=== PATIENT | female | born 1975 | race Caucasian/White ===

== ENCOUNTER 2016-08-27 18:42 | Emergency (ER) | payer OTHER ==
[2016-08-27 19:07] VITALS: BP 121/78; PULSE 95; RESP 16; O2SAT 97
--- NOTE | 2016-08-27 19:50 | UCPHY ---
H & P Time Seen by Provider: 08/27/16 18:45 Patient Type: Established HPI/ROS: 41-year-old female presents complaining of right upper back pain primarily infra and chest medial to her scapula that began yesterday. She did to some heavy weight lifting 2 days ago but denies any falls or injury. Review of systems General no fever no chills no weakness HEENT no eye pain no eye discharge. No eye redness, no sore throat Respiratory no cough, no shortness of breath Cardiac no chest pain, no peripheral edema GI no abdominal pain, no diarrhea, no constipation, no nausea, no vomiting no flank pain, no hematuria, no dysuria Musculoskeletal positive myalgias, no joint pain Heme no easy bruising, no easy bleeding Endo no polyuria, no polydipsia Skin no rashes, no pruritus Neuro no syncope, no dizziness, no headaches Psych is no suicidal ideation, no homicidal ideation Past Medical/Surgical History: Carpal tunnel syndrome Migraines Depression Social History: No alcohol no drug use Smoking Status: Never smoked Physical Exam: 41-year-old female alert and oriented in moderate distress secondary to right upper back pain Atraumatic normocephalic Neck supple Lungs clear to auscultation bilaterally Heart regular rate rhythm without murmur rub or gallop Back-positive right in for scapular and medial to scapula muscle spasm and tenderness to palpation, no crepitus no ecchymosis no rash Spine with no step-offs no CVA tenderness Abdomen normoactive bowel sounds soft Extremities no cyanosis clubbing or edema Neuro-gait intact, good customer experience leader bilaterally Constitutional: Initial Vital Signs Heart Rate 95 08/27/16 18:52 Respiratory Rate 16 08/27/16 18:52 Blood Pressure 121/78 H 08/27/16 18:52 O2 Sat (%) 97 08/27/16 18:52 O2 Delivery Mode Room Air Allergies/Adverse Reactions: amoxicillin trihydrate [From Augmentin] Allergy (Verified 11/25/15 09:51) metoclopramide Allergy (Verified 11/25/15 09:51) potassium clavulanate [From Augmentin] Allergy (Verified 11/25/15 09:51) Home Medications: Medication Instructions Recorded Albuterol Hfa Anes Only [Proair 2 mdi IH QID PRN #1 mdi 11/25/15 Hfa Icu (*)] Jody Allergy 11/25/15 Compazine 11/25/15 Cymbalta 11/25/15 Estradiol 11/25/15 Imitrex 11/25/15 Wellbutrin Xl 11/25/15 Fioricet (*) 03/02/16 Diazepam [Valium 5 MG (*)] 5 mg PO TID PRN #15 tab 08/27/16 Medical Decision Making - Diagnostics Imaging: Chest x-ray, rib films negative mild scoliosis ED Course/Re-evaluation: Patient seen and evaluated for right upper back pain that began yesterday Physical exam significant for muscle spasm with swelling just medial to right scapula and tenderness to palpation along that muscle spasm as well as in for scapular, lungs clear to auscultation Chest x-ray rib films negative other than mild scoliosis which is consistent with muscle spasm Impression Right upper back muscle spasm Plan Diazepam/ NSAID Follow-up PCP if not improving - Data Points Medications Given: Discontinued Medications Diazepam (Valium 5 Mg Prepack#4) 1 btl ZAHRA DELEON ONE Stop: 08/27/16 19:52 Last Admin: 08/27/16 20:08 Dose: 1 btl Departure - Departure Disposition: Home, Routine, Self-Care Clinical Impression: Upper back strain, Muscle spasm Condition: Good Instructions: Muscle Spasm (ED) Referrals: [place],. [Primary Care Provider] - As per Instructions [facility] [Provider Group] - As per Instructions Prescriptions: Diazepam [Valium 5 MG (*)] 5 mg PO TID PRN #15 tab PRN Reason: Spasms - PQRS PQRS Measurement: Not applicable
[2016-08-27] MEDS ORDERED: DIAZEPAM 5 MG PREPACK#4 BTL TAKEHOME ONE (19:51)
--- NOTE | 2016-08-27 21:01 | DX ---
Right RIBS 3 views History: Pain in posterior medial right hemithorax after trauma 2 months ago. Findings: No fracture, pneumothorax, hemothorax, or pulmonary contusion. Sigmoid scoliosis of thoraci c spine is mild and unchanged from chest radiograph of November 25, 2015. No paraspinous masses are foun d. Impression: Mild scoliosis. No fracture.
== END 2016-08-27 20:08 | disposition home or self-care (01) ==
LOC: CED 18:42
DX: M62.830 Muscle spasm of back (principal)
CPT/HCPCS: 71101-PO; G0463-PO

== ENCOUNTER 2016-12-13 14:55 | Emergency (ER) | payer OTHER ==
[2016-12-13 15:05] VITALS: BP 116/85; PULSE 98; RESP 16; TEMP 98.6; O2SAT 95
--- NOTE | 2016-12-13 15:20 | EDPHY ---
H & P Stated Complaint: ST,cough and Ear pain x3 days with fever Time Seen by Provider: 12/13/16 15:10 HPI/ROS: CHIEF COMPLAINT: Cough, fever HISTORY OF PRESENT ILLNESS: The patient is a 41 y/o female complaining of a fever, malaise, and dry, "barky" cough for the last few days. She complains of associated ear ache, headache, and mild back pain when coughing. She notes some mild chest "heaviness" associated with her cough. She denies dyspnea, dizziness , rhinorrhea, post-nasal drip, vomiting, diarrhea, abdominal pain, urinary complaints. She has been using Mucinex with acetaminophen and Advil for symptoms, but reports her fever returns as soon as the antipyretics wear off. She reports her flu vaccination is up-to-date. She has a history of anxiety, depression, and intermittent migraines. REVIEW OF SYSTEMS: A 10 point review of systems was performed and is negative with the exception of the elements mentioned in the history of present illness. - Personal History LMP (Females 10-55): Hysterectomy Tetanus Vaccine Date: 2007 - Medical/Surgical History PMH: PMH includes: 1. Depression 2. Anxiety, 3. Migraines 4. Hysterectomy 5. 3 c-sections 6. Facial surgery secondary to trauma 7. 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 Nonsmoker. Occasional alcohol use. PCP: [facility] [employer] - Physical Exam Exam: General Appearance: Alert, no acute distress. Eyes: Pupils equal and round, no conjunctival injection, no discharge. ENT, Mouth: Mucous membranes are moist, mild oropharyngeal erythema and edema without exudate, no uvula or unilateral peritonsillar swelling. No difficulty with swallowing. Tympanic membranes normal bilaterally. Neck: No lymphadenopathy, supple. Respiratory: Lungs are clear to auscultation; no wheezes, rales, or rhonchi. Cardiovascular: Regular rate and rhythm; no murmur, rub, or gallop. Gastrointestinal: Abdomen is soft and non tender, no masses or organomegaly, bowel sounds normal. Skin: Warm and dry, no rashes, normal color. Neurological: Alert and oriented. Moving all four extremities easily and equally. Psychiatric: Normal affect. Constitutional: Initial Vital Signs Temperature (C) 37.0 C 12/13/16 15:01 Heart Rate 98 12/13/16 15:01 Respiratory Rate 16 12/13/16 15:01 Blood Pressure 116/85 H 12/13/16 15:01 O2 Sat (%) 95 12/13/16 15:01 O2 Delivery Mode Room Air Allergies/Adverse Reactions: amoxicillin trihydrate [From Augmentin] Allergy (Verified 12/13/16 14:58) metoclopramide Allergy (Verified 12/13/16 14:58) potassium clavulanate [From Augmentin] Allergy (Verified 12/13/16 14:58) Home Medications: Medication Instructions Recorded Jody Allergy 11/25/15 Compazine 11/25/15 Cymbalta 11/25/15 Estradiol 11/25/15 Imitrex 11/25/15 Wellbutrin Xl 11/25/15 Fioricet (*) 03/02/16 Hydrocodone/APAP 5/325 [[place] 1 - 2 tab PO Q4 PRN #14 tab 12/13/16 5/325 (RX)] Medical Decision Making ED Course/Re-evaluation: Plan for strep swab and flu swab. Healthy 41-year-old with signs and symptoms of a respiratory, likely viral illness. She appears well hydrated. She is not febrile in the emergency department. She is not appear toxic. Flu swab and rapid strep are negative. We discussed the likelihood of this being viral. We discussed symptomatic treatment. She is being given a prescription for Vicodin to use for cough. She will continue with antipyretic measures. She understands that she needs to watch her overall Tylenol dose. We discussed the danger signs that should prompt her to be re-evaluated. Differential Diagnosis: I considered a differential diagnosis that includes but is not limited to upper respiratory infection, influenza, bronchitis, pneumonia, and pharyngitis either viral or bacterial. There is no evidence of peritonsillar abscess on exam. I do not suspect epiglottitis or retropharyngeal abscess. Lung sounds are clear and I do not suspect pneumonia in this setting of normal respiratory exam and normal oxygen saturation. - Data Points Laboratory Results: 12/13/16 12/13/16 12/13/16 Unknown 15:30 15:30 Influenza Typ A,B (DFA) NEGATIVE FOR FLU (NEGATIVE) Group A Strep Screen NEGATIVE (NEGATIVE) Group A Strep DNA Pending Departure - Departure Disposition: Home, Routine, Self-Care Clinical Impression: Cough, Acute viral pharyngitis Condition: Good Instructions: Pharyngitis (ED), Acute Cough (ED) Additional Instructions: 1. Continue alternating acetaminophen and ibuprofen as needed for pain and fever for the next 2-3 days or while symptoms are present. Instructions below. 2. Use Vicodin as prescribed when needed for pain. Be aware this medication has Tylenol in it. Do not take more than 3000mg of Tylenol in a 24 hour period. 3. Increase fluid intake. 4. Follow up with your primary care provider or the provider you have been referred to for unimproved symptoms over the next 5-7 days. 5. Return to the ED for severe pain, shortness of breath, uncontrollable fever, or other worsening of condition. Adult Pain & Fever Control: We recommend Acetaminophen (Tylenol) and Ibuprofen (Motrin,Advil) for pain and fever control. When fever is high or pain severe, both drugs can be used at the same time, but at different intervals. Please note the time differences. Your dose is: Acetaminophen 650mg every 4 to 6 hours Ibuprofen 600mg every 6-8 hours with food Note: do not take Acetaminophen with Hydrocodone (Vicodin, Lortab) or Oxycodone (Percocet). These medications also contain Acetaminophen. No more than 3000mg of Acetaminophen should be taken in 24 hours (for an adult). Referrals: NONE *PRIMARY CARE P,. [Primary Care Provider] - As per Instructions Sundeep Cook MD [Medical Doctor] - As per Instructions Stand Alone Forms: Work Excuse Prescriptions: Hydrocodone/APAP 5/325 [[place] 5/325 (RX)] 1 - 2 tab PO Q4 PRN #14 tab PRN Reason: cough/pain Report Scribed for: Abby Giles Report Scribed by: Ankita Up Date of Report: 12/13/16 Time of Report: 15:21 Physician Review and Approval Statement: 12/13/16 16:16 Portions of this note were transcribed by the medical liaison. I, Dr. Abby Giles, personally performed the history, physical exam, and medical decision- making; and confirmed the accuracy of the information in the transcribed note.
== END 2016-12-13 16:00 | disposition home or self-care (01) ==
LOC: CED 14:55
DX: J02.8 Acute pharyngitis due to other specified organisms (principal); B97.89 Other viral agents as the cause of diseases classified elsewhere
CPT/HCPCS: 87400-PO; 87880-PO